=== PATIENT | male | born 1990 | race Caucasian/White ===

== ENCOUNTER 2022-01-11 09:11 | Emergency (ER) | payer SELFPAY ==
[~2022-01-11] VITALS: Ht 175.3 cm; Wt 53.0 kg
[2022-01-11 10:11] LABS: HEMOGLOBIN. 10.4 g/dL (14.0-18.0); MEAN CORPUSCULAR HEMOGLOBIN 28.4 pg (28.0-32.0); MEAN CORPUSCULAR VOLUME 87.2 fL (80.0-94.0); MEAN PLATELET VOLUME 7.8 fl (7.4-10.4); PLATELET 349 x1000/uL (130-400); RED BLOOD CELL COUNT 3.67 mill/uL (4.7-6.1); RED CELL DISTRIBUTION WIDTH 14.7 % (11.6-14.6)
[2022-01-11 10:20] LABS: CHLORIDE 99 mEq/L (98-107)
[2022-01-11 10:29] LABS: ETHANOL BLOOD < 10 mg/dL
[2022-01-11 10:39] LABS: CLARITY URINE TURBID (CLEAR); COLOR URINE ORANGE (YELLOW); KETONES URINE 2+ (NEGATIVE); LEUKOCYTE ESTERASE URINE TRACE (NEGATIVE); NITRITE URINE NEGATIVE (NEGATIVE); OCCULT BLOOD URINE NEGATIVE (NEGATIVE); PH URINE 5.5 (4.5-8.0); PROTEIN URINE 1+ (NEGATIVE); SPECIFIC GRAVITY URINE 1.034 (1.005-1.030)
[2022-01-11 11:15] LABS: PLATELET ESTIMATE NORMAL
[2022-01-11 11:16] LABS: *AMPHETAMINES SCREEN URINE NEGATIVE (NEGATIVE); *BARBITURATES SCREEN URINE NEGATIVE (NEGATIVE); *BENZODIAZEPINES SCREEN URINE NEGATIVE (NEGATIVE); *COCAINE SCREEN URINE NEGATIVE (NEGATIVE); CANNABINOID URINE SCREEN PRESUMTIVE POSITIVE (NEGATIVE); METHADONE URINE SCREEN NEGATIVE (NEGATIVE); OPIATES URINE SCREEN NEGATIVE (NEGATIVE); PHENCYCLIDINE URINE SCREEN NEGATIVE (NEGATIVE)
[2022-01-11 13:12] VITALS: BP 102/84
== END 2022-01-11 16:04 | disposition left against medical advice (07) ==
LOC: EDBD 09:11 → ER 09:11 → EDBEDREQTM 13:47 → EDBEDREQ 13:47 → ER 16:04 → CANBEDREQ 01-12 01:54
DX: R41.82 Altered mental status, unspecified (principal); E11.9 Type 2 diabetes mellitus without complications; E46 Unspecified protein-calorie malnutrition; Z68.1 Body mass index [BMI] 19.9 or less, adult
CPT/HCPCS: 36415; 71045; 80053; 80305; 80320; 81003; 84484; 85025; 99285; G0480

== ENCOUNTER 2022-01-12 17:24 | Inpatient (IN) | payer MEDICAID ==
[~2022-01-12] VITALS: Ht 175.3 cm; Wt 54.5 kg
[2022-01-12] MEDS ORDERED: VANCOMYCIN 1GM PMX (XELLIA) 200 ML IV NR (20:15)
[2022-01-12] MEDS ORDERED: PIPERACILLIN/TAZ 3.375G PREMIX 50 ML IV NR (20:15)
[2022-01-12] MEDS ORDERED: SODIUM CHLORIDE 0.9% 1,000 ML IV ONE (20:15)
[2022-01-12 23:51] LABS: HEMATOCRIT. 35.1 % (42.0-52.0); HEMOGLOBIN. 11.3 g/dL (14.0-18.0); PLATELET 420 x1000/uL (130-400); RED BLOOD CELL COUNT 4.04 mill/uL (4.7-6.1); RED CELL DISTRIBUTION WIDTH 14.5 % (11.6-14.6)
[2022-01-12 23:59] LABS: CHLORIDE 98 mEq/L (98-107)
[2022-01-13 00:02] LABS: INR 1.1; PROTHROMBIN TIME 11.9 sec (9.6-11.0)
[2022-01-13 00:07] LABS: ETHANOL BLOOD < 10 mg/dL
[2022-01-13] MEDS ORDERED: HYDROCODONE/ACETAMINOPHEN 5/325MG TABLET PO PRN (00:15)
[2022-01-13] MEDS ORDERED: DIPHENHYDRAMINE 50MG/ML VIAL IV PRN (00:15)
[2022-01-13] MEDS ORDERED: IPRATROPIUM/ALBUTEROL 0.5-3(2.5)MG/3ML NEB HHN PRN (00:15)
[2022-01-13] MEDS ORDERED: ONDANSETRON HCL 4MG/2ML INJ IV PRN (00:15)
[2022-01-13] MEDS ORDERED: ACETAMINOPHEN 325MG TABLET PO PRN (00:15)
[2022-01-13] MEDS ORDERED: LORAZEPAM 0.5MG TABLET PO PRN (00:15)
[2022-01-13] MEDS ORDERED: CLONIDINE 0.1MG TABLET PO PRN (00:15)
[2022-01-13] MEDS ORDERED: DOCUSATE SODIUM 100MG CAPSULE PO PRN (00:15)
[2022-01-13] MEDS ORDERED: GUAIFENESIN 200MG/10ML SUGAR FREE UDC PO PRN (00:15)
[2022-01-13] MEDS ORDERED: ACETAMINOPHEN 650MG SUPP PR PRN (00:15)
[2022-01-13] MEDS ORDERED: MAGNESIUM/ALUMINUM HYDROXIDE/SIMETHICONE 30ML UDC PO PRN (00:15)
[2022-01-13] MEDS ORDERED: VANCOMYCIN 1G PREMIX 200 ML IV SCH (00:15)
[2022-01-13 01:04] LABS: PLATELET ESTIMATE NORMAL
[2022-01-13] MEDS ORDERED: VANCOMYCIN 1250MG in DEXTROSE 5% WATER 250ML IV NR (02:00)
[2022-01-13] MEDS ORDERED: PIPERACILLIN/TAZOBACTAM 3.375 G in DEXTROSE 5% WATER 50 ML IV SCH (06:00)
[2022-01-13 06:39] VITALS: BP 110/71
[2022-01-13 08:00] VITALS: BP 105/67
[2022-01-13 10:31] LABS: HEMATOCRIT. 24.8 % (42.0-52.0); HEMOGLOBIN. 8.3 g/dL (14.0-18.0); MEAN CORPUSCULAR HEMOGLOBIN 28.6 pg (28.0-32.0); MEAN CORPUSCULAR VOLUME 85.4 fL (80.0-94.0); PLATELET 346 x1000/uL (130-400); RED CELL DISTRIBUTION WIDTH 14.3 % (11.6-14.6)
[2022-01-13 10:47] LABS: CHLORIDE 97 mEq/L (98-107)
[2022-01-13 10:57] LABS: CREATINE KINASE 77 IU/L (39-308)
[2022-01-13] MEDS ORDERED: NALOXONE HCL 0.4MG/ML VIAL IV PRN (11:45)
[2022-01-13] MEDS: PIPERACILLIN/TAZOBACTAM 3.375 G in DEXTROSE 5% WATER 50 ML IV SCH ×2 (11:49→14:12)
[2022-01-13] MEDS: VANCOMYCIN 750MG PREMIX 150 ML IV SCH ×2 (11:49→18:38)
[2022-01-13] MEDS: ENOXAPARIN 30MG/0.3ML SYR SUBCUT SCH (11:50)
[2022-01-13 12:00] VITALS: BP 114/71
[2022-01-13 13:36] LABS: PLATELET ESTIMATE NORMAL
[2022-01-13] MEDS ORDERED: VANCOMYCIN 1GM PMX (XELLIA) 200 ML IV SCH (14:00)
[2022-01-13] MEDS: SODIUM CHLORIDE 0.9% 1,000 ML IV SCH ×2 (14:06→21:45)
[2022-01-13 15:07] LABS: CLARITY URINE CLEAR (CLEAR); COLOR URINE DARK YELLOW (YELLOW); KETONES URINE TRACE (NEGATIVE); LEUKOCYTE ESTERASE URINE 1+ (NEGATIVE); NITRITE URINE POSITIVE (NEGATIVE); OCCULT BLOOD URINE NEGATIVE (NEGATIVE); PROTEIN URINE 1+ (NEGATIVE); SPECIFIC GRAVITY URINE 1.032 (1.005-1.030)
[2022-01-13 15:38] LABS: *AMPHETAMINES SCREEN URINE PRESUMTIVE POSITIVE (NEGATIVE); *BARBITURATES SCREEN URINE NEGATIVE (NEGATIVE); *BENZODIAZEPINES SCREEN URINE NEGATIVE (NEGATIVE); *COCAINE SCREEN URINE NEGATIVE (NEGATIVE); CANNABINOID URINE SCREEN NEGATIVE (NEGATIVE); METHADONE URINE SCREEN NEGATIVE (NEGATIVE); OPIATES URINE SCREEN NEGATIVE (NEGATIVE); PHENCYCLIDINE URINE SCREEN NEGATIVE (NEGATIVE)
[2022-01-13 16:00] VITALS: BP 103/61
[2022-01-13] MEDS ORDERED: CEFTRIAXONE 1 G PREMIX 50 ML IV SCH (16:15)
[2022-01-13 16:18] VITALS: BP 105/67
[2022-01-13] MEDS ORDERED: AZITHROMYCIN 500 MG TABLET PO NR (16:30)
[2022-01-13 17:11] LABS: BG CARBOXYHEMOGLOBIN 0.4 % (0.5-1.5); BG DEOXYHEMOGLOBIN 4.8 % (0.0-5.0); BG FRACTION INSPIRED OXYGEN 21; BG HCO3 ACT 28.7 mmol/L (22.0-26.0); BG METHEMOGLOBIN 0.2 % (0.0-1.5); BG OXYGEN SATURATION 95.2 % (92.0-98.5); BG OXYHEMOGLOBIN 94.6 % (94.0-97.0); BG PCO2 38.3 mmHg (35.0-45.0); BG PH 7.492 (7.350-7.450); BG PO2 78.5 mmHg (75.0-100.0); BG SAMPLE SITE LEFT RADIAL; BG TOTAL HEMOGLOBIN 8.5 g/dL (12.0-18.0); BG VENT MODE ROOM AIR
[2022-01-13] MEDS: CEFTRIAXONE 1,000 MG in DEXTROSE 5% WATER 50 ML IV SCH (18:37)
[2022-01-13] MEDS: SULFAMETHOXAZOLE/TRIMETHOPRIM 800/160MG TABLET PO SCH (20:54)
[2022-01-14] VITALS: BP 105/55
[2022-01-14] MEDS: ACETAMINOPHEN 325MG TABLET PO PRN (01:07)
[2022-01-14 04:00] VITALS: BP 99/51
[2022-01-14 08:00] VITALS: BP 97/59
[2022-01-14 08:48] LABS: HEMATOCRIT. 26.6 % (42.0-52.0); MEAN CORPUSCULAR VOLUME 85.9 fL (80.0-94.0); PLATELET 316 x1000/uL (130-400); RED CELL DISTRIBUTION WIDTH 14.5 % (11.6-14.6)
[2022-01-14 09:09] LABS: ABSOLUTE LYMPHOCYTES 0.5 x10E3/uL (0.7-3.1); ABSOLUTE MONOCYTES 0.5 x10E3/uL (0.1-0.9); ABSOLUTE NEUTROPHILS 4.4 x10E3/uL (1.4-7.0); BASOPHILS 1 % (Not Estab.); HEMATOCRIT 37.4 % (37.5-51.0); HEMOGLOBIN 11.8 g/dL (13.0-17.7); IMMATURE GRANULOCYTES 2 % (Not Estab.); IMMATURE GRANULOCYTES ABSOLUTE 0.1 x10E3/uL (0.0-0.1); LYMPHOCYTES 9 % (Not Estab.); MEAN CORPUSCULAR HEMOGLOBIN 28.1 pg (26.6-33.0); MEAN CORPUSCULAR HGB CONC. 31.6 g/dL (31.5-35.7); MEAN CORPUSCULAR VOLUME 89 fL (79-97); MONOCYTES 10 % (Not Estab.); NEUTROPHILS 78 % (Not Estab.); PLATELETS 418 x10E3/uL (150-450); RED CELL DISTRIBUTION WIDTH 13.3 % (11.6-15.4); WBC 5.6 x10E3/uL (3.4-10.8)
[2022-01-14] MEDS: ENOXAPARIN 30MG/0.3ML SYR SUBCUT SCH (11:05)
[2022-01-14] MEDS: SULFAMETHOXAZOLE/TRIMETHOPRIM 800/160MG TABLET PO SCH ×2 (11:05→20:16)
[2022-01-14] MEDS: FLUCONAZOLE 100MG TABLET PO SCH ×2 (11:05→11:11)
[2022-01-14] MEDS: AZITHROMYCIN 250 MG TABLET PO SCH (11:05)
[2022-01-14] MEDS: SODIUM CHLORIDE 0.9% 1,000 ML IV SCH ×2 (11:06→17:45)
[2022-01-14 12:00] VITALS: BP 100/60
[2022-01-14 12:16] LABS: HEPATITIS B SURFACE ANTIGEN NEGATIVE
[2022-01-14 13:06] LABS: % CD 3 POS. LYMPHOCYTES 38.5 % (57.5-86.2); % CD 4 POS. LYMPHOCYTES 0.5 % (30.8-58.5); % CD 8 POS. LYMPH 33.1 % (12.0-35.5); ABSOLUTE CD 3 193 /uL (622-2402); ABSOLUTE CD 4 HELPER 3 /uL (359-1519); ABSOLUTE CD 8 SUPPRESSOR 166 /uL (109-897); CD4/CD8 RATIO 0.02 (0.92-3.72)
[2022-01-14 13:25] LABS: PLATELET ESTIMATE NORMAL
[2022-01-14 13:43] LABS: CHLORIDE 95 mEq/L (98-107)
[2022-01-14 14:08] LABS: HDL CHOLESTEROL 15 mg/dL (40-59); LDL CHOLESTEROL 22 mg/dL (5-100)
[2022-01-14 16:00] VITALS: BP 103/68
[2022-01-14] MEDS: VANCOMYCIN 750MG PREMIX 150 ML IV SCH (18:49)
[2022-01-14] MEDS: CEFTRIAXONE 1,000 MG in DEXTROSE 5% WATER 50 ML IV SCH (18:56)
[2022-01-14 20:00] VITALS: BP 106/69
[2022-01-15] VITALS: BP 97/51
[2022-01-15] MEDS: VANCOMYCIN 750MG PREMIX 150 ML IV SCH ×2 (01:17→10:00)
[2022-01-15] MEDS: SODIUM CHLORIDE 0.9% 1,000 ML IV SCH ×3 (03:45→23:45)
[2022-01-15 04:00] VITALS: BP 98/52
[2022-01-15 08:00] VITALS: BP 101/62
[2022-01-15] MEDS: SULFAMETHOXAZOLE/TRIMETHOPRIM 800/160MG TABLET PO SCH (10:00)
[2022-01-15] MEDS: FLUCONAZOLE 100MG TABLET PO SCH (10:00)
[2022-01-15] MEDS: AZITHROMYCIN 250 MG TABLET PO SCH (10:00)
[2022-01-15] MEDS: ENOXAPARIN 30MG/0.3ML SYR SUBCUT SCH (10:01)
[2022-01-15 12:00] VITALS: BP 102/62
[2022-01-15 12:45] LABS: HEMATOCRIT. 25.2 % (42.0-52.0); HEMOGLOBIN. 8.4 g/dL (14.0-18.0); MEAN CORPUSCULAR HEMOGLOBIN 28.6 pg (28.0-32.0); MEAN CORPUSCULAR VOLUME 86.2 fL (80.0-94.0); MEAN PLATELET VOLUME 7.8 fl (7.4-10.4); PLATELET 346 x1000/uL (130-400); RED BLOOD CELL COUNT 2.92 mill/uL (4.7-6.1); RED CELL DISTRIBUTION WIDTH 14.9 % (11.6-14.6)
[2022-01-15 12:59] LABS: CHLORIDE 95 mEq/L (98-107)
[2022-01-15] MEDS ORDERED: SODIUM CHLORIDE 10% FOR INH 15ML VIAL NEB INH SCH (13:00)
[2022-01-15 16:00] VITALS: BP 100/60
[2022-01-15] MEDS: CEFTRIAXONE 1,000 MG in DEXTROSE 5% WATER 50 ML IV SCH (18:05)
[2022-01-15 20:00] VITALS: BP 98/60
[2022-01-16] VITALS: BP 104/63
[2022-01-16 04:00] VITALS: BP 106/64
[2022-01-16 07:29] LABS: PLATELET ESTIMATE NORMAL
[2022-01-16 08:00] VITALS: BP 110/57
[2022-01-16 08:46] LABS: HEMATOCRIT. 26.2 % (42.0-52.0); HEMOGLOBIN. 8.7 g/dL (14.0-18.0); MEAN CORPUSCULAR HEMOGLOBIN 28.8 pg (28.0-32.0); MEAN PLATELET VOLUME 7.5 fl (7.4-10.4); PLATELET 362 x1000/uL (130-400); RED BLOOD CELL COUNT 3.01 mill/uL (4.7-6.1); RED CELL DISTRIBUTION WIDTH 14.8 % (11.6-14.6)
[2022-01-16 08:55] LABS: CHLORIDE 98 mEq/L (98-107)
[2022-01-16] MEDS: AZITHROMYCIN 250 MG TABLET PO SCH (10:32)
[2022-01-16] MEDS: ENOXAPARIN 30MG/0.3ML SYR SUBCUT SCH (10:32)
[2022-01-16] MEDS: SULFAMETHOXAZOLE/TRIMETHOPRIM 800/160MG TABLET PO SCH (10:32)
[2022-01-16] MEDS: FLUCONAZOLE 100MG TABLET PO SCH (10:33)
[2022-01-16] MEDS: SODIUM CHLORIDE 0.9% 1,000 ML IV SCH ×2 (10:33→19:45)
[2022-01-16 12:00] VITALS: BP 90/54
[2022-01-16 14:37] LABS: PLATELET ESTIMATE NORMAL
[2022-01-16 16:00] VITALS: BP 102/69
[2022-01-16] MEDS: CEFTRIAXONE 1,000 MG in DEXTROSE 5% WATER 50 ML IV SCH (18:23)
[2022-01-16 20:00] VITALS: BP 91/54
[2022-01-17] VITALS: BP 100/66
[2022-01-17 04:00] VITALS: BP 106/67
[2022-01-17] MEDS: SODIUM CHLORIDE 0.9% 1,000 ML IV SCH ×2 (05:45→18:14)
[2022-01-17 08:00] VITALS: BP 110/79
[2022-01-17 08:10] LABS: QFT MITOGEN VALUE 0.06 IU/mL (.); QFT TB GOLD PLUS Indeterminate (Negative); QFT TB1 AG VALUE 0.03 IU/mL (.)
[2022-01-17] MEDS: ENOXAPARIN 30MG/0.3ML SYR SUBCUT SCH ×2 (09:00→09:29)
[2022-01-17] MEDS: AZITHROMYCIN 250 MG TABLET PO SCH (09:28)
[2022-01-17] MEDS: SULFAMETHOXAZOLE/TRIMETHOPRIM 800/160MG TABLET PO SCH (09:29)
[2022-01-17] MEDS: FLUCONAZOLE 100MG TABLET PO SCH (09:30)
[2022-01-17 12:00] VITALS: BP 106/74
[2022-01-17 16:00] VITALS: BP 100/50
[2022-01-17] MEDS: CEFTRIAXONE 1,000 MG in DEXTROSE 5% WATER 50 ML IV SCH (18:14)
[2022-01-17 20:00] VITALS: BP 94/54
[2022-01-18] VITALS (7 sets, daily range): BP systolic 86–112; BP diastolic 53–73
[2022-01-18] MEDS: SODIUM CHLORIDE 0.9% 1,000 ML IV SCH ×2 (00:36→11:45)
[2022-01-18] MEDS: ACETAMINOPHEN 325MG TABLET PO PRN (00:37)
[2022-01-18] MEDS: ENOXAPARIN 30MG/0.3ML SYR SUBCUT SCH ×3 (09:00→10:03)
[2022-01-18] MEDS: FLUCONAZOLE 100MG TABLET PO SCH (10:02)
[2022-01-18] MEDS: SULFAMETHOXAZOLE/TRIMETHOPRIM 800/160MG TABLET PO SCH (10:02)
[2022-01-18] MEDS: AZITHROMYCIN 250 MG TABLET PO SCH (10:02)
[2022-01-18] MEDS ORDERED: [UNRECOGNIZED DRUG - REMARK] XX SCH (13:30)
[2022-01-18] MEDS: CEFTRIAXONE 1,000 MG in DEXTROSE 5% WATER 50 ML IV SCH (19:48)
[2022-01-19] VITALS: BP 102/66
[2022-01-19] MEDS: SODIUM CHLORIDE 0.9% 1,000 ML IV SCH ×3 (00:32→17:26)
[2022-01-19 04:00] VITALS: BP 100/65
[2022-01-19 08:00] VITALS: BP 102/69
[2022-01-19 09:35] LABS: BASOPHILS % 0.4 % (0.0-2.0); HEMATOCRIT. 25.2 % (42.0-52.0); HEMOGLOBIN. 8.3 g/dL (14.0-18.0); LYMPHOCYTES % 10.4 % (20.0-50.0); MEAN CORPUSCULAR HEMOGLOBIN 28.7 pg (28.0-32.0); MEAN CORPUSCULAR VOLUME 86.7 fL (80.0-94.0); MEAN PLATELET VOLUME 7.3 fl (7.4-10.4); MONOCYTES % 9.2 % (2.0-8.0); PLATELET 319 x1000/uL (130-400); RED CELL DISTRIBUTION WIDTH 14.7 % (11.6-14.6)
[2022-01-19] MEDS: AZITHROMYCIN 250 MG TABLET PO SCH (09:56)
[2022-01-19] MEDS: SULFAMETHOXAZOLE/TRIMETHOPRIM 800/160MG TABLET PO SCH (09:56)
[2022-01-19] MEDS: FLUCONAZOLE 100MG TABLET PO SCH (09:57)
[2022-01-19 09:59] LABS: CHLORIDE 101 mEq/L (98-107)
[2022-01-19 12:00] VITALS: BP 100/60
[2022-01-19 16:00] VITALS: BP 108/68
[2022-01-19] MEDS: CEFTRIAXONE 1,000 MG in DEXTROSE 5% WATER 50 ML IV SCH (17:27)
[2022-01-20] MEDS: ACETAMINOPHEN 325MG TABLET PO PRN (00:40)
[2022-01-20] MEDS: SODIUM CHLORIDE 0.9% 1,000 ML IV SCH (03:45)
[2022-01-20 08:00] VITALS: BP 94/62
[2022-01-20] MEDS: ENOXAPARIN 30MG/0.3ML SYR SUBCUT SCH (09:00)
[2022-01-20] MEDS: FLUCONAZOLE 100MG TABLET PO SCH (09:25)
[2022-01-20] MEDS: SULFAMETHOXAZOLE/TRIMETHOPRIM 800/160MG TABLET PO SCH (09:25)
[2022-01-20 12:00] VITALS: BP 105/70
[2022-01-20] MEDS ORDERED: AZIT500T8 PO (12:12)
[2022-01-20] MEDS ORDERED: SULF1TAB44 PO (12:12)
[2022-01-20] MEDS ORDERED: LEVO500T90 MT (12:12)
[2022-01-20] MEDS ORDERED: FLUC100T PO (12:12)
[2022-01-20 13:39] VITALS: BP 114/64
== END 2022-01-20 15:00 | disposition home or self-care (01) | DRG 890 ==
LOC: ER 17:24 → MICUSO 22:45 → 6EST 01-13 06:14
PROVIDERS: ADMIT Family Medicine Adult Medicine; ATTEND Family Medicine Adult Medicine
DX: B20 Human immunodeficiency virus [HIV] disease (principal); A40.3 Sepsis due to Streptococcus pneumoniae; B45.9 Cryptococcosis, unspecified; E43 Unspecified severe protein-calorie malnutrition; L89.153 Pressure ulcer of sacral region, stage 3; J15.9 Unspecified bacterial pneumonia; E87.1 Hypo-osmolality and hyponatremia; L89.156 Pressure-induced deep tissue damage of sacral region; R62.7 Adult failure to thrive; E86.0 Dehydration; F15.10 Other stimulant abuse, uncomplicated; N30.00 Acute cystitis without hematuria; Z20.822 Contact with and (suspected) exposure to COVID-19; B37.9 Candidiasis, unspecified; D64.9 Anemia, unspecified; Z91.14 Patient's other noncompliance with medication regimen; Z59.00 Homelessness unspecified; Z79.899 Other long term (current) drug therapy; Z91.19 Patient's noncompliance with other medical treatment and regimen; Z68.1 Body mass index [BMI] 19.9 or less, adult
CPT/HCPCS: 36415; 36600; 71045; 80048; 80053; 80061; 80202; 80305; 80320; 81003; 82040; 82375; 82550; 82805; 83605; 83615; 84134; 84145; 84443; 84484; 85025; 85651; 86359; 86360; 86480; 86635; 86788; 86789; 86803; 87077; 87116; 87186; 87340; 87426; 87496; 87804; 87899; 99285; J0696; J1650; J2543; J3370; J7030; J7060; J7131; G0480